=== PATIENT | male | born 1955 | race Caucasian/White ===

== ENCOUNTER 2022-06-17 09:37 | Outpatient (RCR) | payer OTHER ==
[~2022-06-17] VITALS: Ht 185.4 cm; Wt 114.8 kg
[~2022-06-17 09:37] MED LIST: D5W 500 ML IV SOLUTION 500 ML IV SCH; D5W IV SCH; HEParin (CENTRAL IV FLUSH) 500 UNIT/5 ML SYR IV PRN; OXALIPLATIN IV SCH; PALONOSETRON HCL 0.25 MG, dexAMETHasone INJECTION 10 MG in NS (IVPB) 50 ML IV SCH
[2022-06-17 10:03] LABS: BASOPHILS # (AUTO) 0.1 10^3/uL (0.0-0.1); BASOPHILS % (AUTO) 1 % (0-10); EOSINOPHILS # (AUTO) 0.2 10^3/uL (0.0-0.3); EOSINOPHILS % (AUTO) 3 % (0-10); HEMATOCRIT 38 % (40-54); HEMOGLOBIN 11.3 g/dL (13.3-17.7); LYMPHOCYTES # (AUTO) 1.4 10^3/uL (1.0-4.0); LYMPHOCYTES % (AUTO) 19 % (12-44); MEAN CORPUSCULAR HEMOGLOBIN 23 pg (25-34); MEAN CORPUSCULAR HGB CONC 30 g/dL (32-36); MEAN CORPUSCULAR VOLUME 77 fL (80-99); MEAN PLATELET VOLUME 10.2 fL (9.0-12.2); MONOCYTES # (AUTO) 0.7 10^3/uL (0.0-1.0); MONOCYTES % (AUTO) 9 % (0-12); NEUTROPHILS % (AUTO) 68 % (42-75); PLATELET COUNT 286 10^3/uL (130-400); WHITE BLOOD COUNT 7.3 10^3/uL (4.3-11.0)
[2022-06-17 10:24] LABS: BILIRUBIN,TOTAL 0.5 MG/DL (0.1-1.0); CALCIUM 9.3 MG/DL (8.5-10.1); CREATININE SERUM 1.54 MG/DL (0.60-1.30); POTASSIUM 4.2 MMOL/L (3.6-5.0); TOTAL PROTEIN 7.3 GM/DL (6.4-8.2)
== END 2022-06-20 | disposition home or self-care (01) ==
LOC: ONC 09:37
PROVIDERS: ATTEND Internal Medicine Hematology & Oncology
DX: Z51.11 Encounter for antineoplastic chemotherapy (principal); C18.9 Malignant neoplasm of colon, unspecified
CPT/HCPCS: 36591; 80053; 85025; 96375; 96413; 96415; 99204

== ENCOUNTER 2022-07-07 09:36 | Outpatient (RCR) | payer OTHER ==
[2022-07-07 10:32] LABS: BASOPHILS % (AUTO) 0 % (0-10); EOSINOPHILS % (AUTO) 0 % (0-10); HEMATOCRIT 42 % (40-54); HEMOGLOBIN 13.2 g/dL (13.3-17.7); LYMPHOCYTES # (AUTO) 0.7 10^3/uL (1.0-4.0); LYMPHOCYTES % (AUTO) 9 % (12-44); MEAN CORPUSCULAR HEMOGLOBIN 24 pg (25-34); MEAN CORPUSCULAR HGB CONC 32 g/dL (32-36); MEAN CORPUSCULAR VOLUME 76 fL (80-99); MEAN PLATELET VOLUME 9.9 fL (9.0-12.2); MONOCYTES # (AUTO) 0.2 10^3/uL (0.0-1.0); MONOCYTES % (AUTO) 3 % (0-12); NEUTROPHILS # (AUTO) 6.7 10^3/uL (1.8-7.8); NEUTROPHILS % (AUTO) 88 % (42-75); PLATELET COUNT 242 10^3/uL (130-400); WHITE BLOOD COUNT 7.7 10^3/uL (4.3-11.0)
[2022-07-07 10:51] LABS: CREATININE SERUM 1.55 MG/DL (0.60-1.30); POTASSIUM 4.4 MMOL/L (3.6-5.0)
[2022-07-07 10:52] LABS: ALBUMIN 4.3 GM/DL (3.2-4.5); BILIRUBIN,TOTAL 0.4 MG/DL (0.1-1.0); CALCIUM 9.5 MG/DL (8.5-10.1); TOTAL PROTEIN 8.1 GM/DL (6.4-8.2)
== END 2022-07-21 | disposition home or self-care (01) ==
LOC: ONC 09:36
PROVIDERS: ATTEND Internal Medicine Hematology & Oncology
DX: Z51.11 Encounter for antineoplastic chemotherapy (principal); Z45.2 Encounter for adjustment and management of vascular access device; C18.9 Malignant neoplasm of colon, unspecified
CPT/HCPCS: 36591; 80053; 85025; 96375; 96413; 96415

== ENCOUNTER 2022-08-18 09:38 | Outpatient (RCR) | payer OTHER ==
[2022-07-28 11:18] LABS: BASOPHILS % (AUTO) 1 % (0-10); EOSINOPHILS # (AUTO) 0.2 10^3/uL (0.0-0.3); EOSINOPHILS % (AUTO) 3 % (0-10); HEMATOCRIT 40 % (40-54); HEMOGLOBIN 12.9 g/dL (13.3-17.7); LYMPHOCYTES # (AUTO) 1.6 10^3/uL (1.0-4.0); LYMPHOCYTES % (AUTO) 23 % (12-44); MEAN CORPUSCULAR HEMOGLOBIN 26 pg (25-34); MEAN CORPUSCULAR HGB CONC 32 g/dL (32-36); MEAN CORPUSCULAR VOLUME 80 fL (80-99); MEAN PLATELET VOLUME 9.9 fL (9.0-12.2); MONOCYTES % (AUTO) 14 % (0-12); NEUTROPHILS % (AUTO) 59 % (42-75); PLATELET COUNT 160 10^3/uL (130-400); WHITE BLOOD COUNT 6.7 10^3/uL (4.3-11.0)
[2022-07-28 11:47] LABS: ALBUMIN 3.9 GM/DL (3.2-4.5); BILIRUBIN,TOTAL 0.5 MG/DL (0.1-1.0); CALCIUM 9.3 MG/DL (8.5-10.1); CREATININE SERUM 1.31 MG/DL (0.60-1.30); POTASSIUM 4.2 MMOL/L (3.6-5.0); TOTAL PROTEIN 7.6 GM/DL (6.4-8.2)
[~2022-08-18 09:38] MED LIST changes: +ALTEPLASE 2 MG (CATHFLO) IV ONE
[2022-08-18 10:27] LABS: BASOPHILS # (AUTO) 0.1 10^3/uL (0.0-0.1); BASOPHILS % (AUTO) 1 % (0-10); EOSINOPHILS # (AUTO) 0.1 10^3/uL (0.0-0.3); EOSINOPHILS % (AUTO) 2 % (0-10); HEMATOCRIT 38 % (40-54); HEMOGLOBIN 12.5 g/dL (13.3-17.7); LYMPHOCYTES # (AUTO) 1.2 10^3/uL (1.0-4.0); LYMPHOCYTES % (AUTO) 20 % (12-44); MEAN CORPUSCULAR HEMOGLOBIN 27 pg (25-34); MEAN CORPUSCULAR HGB CONC 33 g/dL (32-36); MEAN CORPUSCULAR VOLUME 83 fL (80-99); MEAN PLATELET VOLUME 9.8 fL (9.0-12.2); MONOCYTES # (AUTO) 0.9 10^3/uL (0.0-1.0); MONOCYTES % (AUTO) 15 % (0-12); NEUTROPHILS # (AUTO) 3.8 10^3/uL (1.8-7.8); NEUTROPHILS % (AUTO) 62 % (42-75); PLATELET COUNT 143 10^3/uL (130-400); WHITE BLOOD COUNT 6.2 10^3/uL (4.3-11.0)
[2022-08-18 11:12] LABS: ALBUMIN 3.8 GM/DL (3.2-4.5); BILIRUBIN,TOTAL 0.3 MG/DL (0.1-1.0); CALCIUM 9.1 MG/DL (8.5-10.1); CREATININE SERUM 1.46 MG/DL (0.60-1.30); POTASSIUM 4.1 MMOL/L (3.6-5.0); TOTAL PROTEIN 7.1 GM/DL (6.4-8.2)
== END 2022-08-20 | disposition home or self-care (01) ==
LOC: ONC 09:38
PROVIDERS: ATTEND Internal Medicine Hematology & Oncology
DX: Z51.11 Encounter for antineoplastic chemotherapy (principal); Z45.2 Encounter for adjustment and management of vascular access device; C18.9 Malignant neoplasm of colon, unspecified
CPT/HCPCS: 36591; 36593; 80053; 85025; 96375; 96413; 96415

== ENCOUNTER 2022-09-08 09:40 | Outpatient (RCR) | payer OTHER ==
[~2022-09-08 09:40] MED LIST changes: -ALTEPLASE 2 MG (CATHFLO) IV ONE
[2022-09-08 10:33] LABS: BASOPHILS # (AUTO) 0.1 10^3/uL (0.0-0.1); BASOPHILS % (AUTO) 1 % (0-10); EOSINOPHILS # (AUTO) 0.2 10^3/uL (0.0-0.3); EOSINOPHILS % (AUTO) 3 % (0-10); HEMATOCRIT 42 % (40-54); HEMOGLOBIN 13.9 g/dL (13.3-17.7); LYMPHOCYTES # (AUTO) 1.9 10^3/uL (1.0-4.0); LYMPHOCYTES % (AUTO) 28 % (12-44); MEAN CORPUSCULAR HEMOGLOBIN 28 pg (25-34); MEAN CORPUSCULAR HGB CONC 33 g/dL (32-36); MEAN CORPUSCULAR VOLUME 86 fL (80-99); MONOCYTES # (AUTO) 0.8 10^3/uL (0.0-1.0); MONOCYTES % (AUTO) 12 % (0-12); NEUTROPHILS # (AUTO) 3.7 10^3/uL (1.8-7.8); NEUTROPHILS % (AUTO) 55 % (42-75); PLATELET COUNT 149 10^3/uL (130-400); WHITE BLOOD COUNT 6.7 10^3/uL (4.3-11.0)
[2022-09-08 10:59] LABS: ALBUMIN 3.8 GM/DL (3.2-4.5); BILIRUBIN,TOTAL 0.5 MG/DL (0.1-1.0); CALCIUM 9.5 MG/DL (8.5-10.1); CREATININE SERUM 1.42 MG/DL (0.60-1.30); TOTAL PROTEIN 7.4 GM/DL (6.4-8.2)
== END 2022-09-20 | disposition home or self-care (01) ==
LOC: ONC 09:40
PROVIDERS: ATTEND Internal Medicine Hematology & Oncology
DX: Z51.11 Encounter for antineoplastic chemotherapy (principal); Z45.2 Encounter for adjustment and management of vascular access device; C18.9 Malignant neoplasm of colon, unspecified
CPT/HCPCS: 36591; 80053; 85025; 96375; 96413; 96415

== ENCOUNTER 2022-09-29 09:40 | Outpatient (RCR) | payer OTHER ==
[2022-09-29 10:16] LABS: BASOPHILS # (AUTO) 0.1 10^3/uL (0.0-0.1); BASOPHILS % (AUTO) 1 % (0-10); EOSINOPHILS # (AUTO) 0.2 10^3/uL (0.0-0.3); EOSINOPHILS % (AUTO) 3 % (0-10); HEMATOCRIT 40 % (40-54); HEMOGLOBIN 13.7 g/dL (13.3-17.7); LYMPHOCYTES % (AUTO) 27 % (12-44); MEAN CORPUSCULAR HEMOGLOBIN 30 pg (25-34); MEAN CORPUSCULAR HGB CONC 34 g/dL (32-36); MEAN CORPUSCULAR VOLUME 90 fL (80-99); MEAN PLATELET VOLUME 9.9 fL (9.0-12.2); MONOCYTES # (AUTO) 1.1 10^3/uL (0.0-1.0); MONOCYTES % (AUTO) 15 % (0-12); NEUTROPHILS # (AUTO) 3.9 10^3/uL (1.8-7.8); NEUTROPHILS % (AUTO) 53 % (42-75); WHITE BLOOD COUNT 7.4 10^3/uL (4.3-11.0)
[2022-09-29 10:20] LABS: PLATELET COUNT 116 10^3/uL (130-400)
[2022-09-29 10:55] LABS: ALBUMIN 3.9 GM/DL (3.2-4.5); BILIRUBIN,TOTAL 0.5 MG/DL (0.1-1.0); CALCIUM 9.4 MG/DL (8.5-10.1); CREATININE SERUM 1.48 MG/DL (0.60-1.30); POTASSIUM 4.2 MMOL/L (3.6-5.0); TOTAL PROTEIN 7.4 GM/DL (6.4-8.2)
== END 2022-10-20 | disposition home or self-care (01) ==
LOC: ONC 09:40
PROVIDERS: ATTEND Internal Medicine Hematology & Oncology
DX: Z51.11 Encounter for antineoplastic chemotherapy (principal); Z45.2 Encounter for adjustment and management of vascular access device; C18.9 Malignant neoplasm of colon, unspecified
CPT/HCPCS: 36591; 80053; 85025; 96375; 96413; 96415

== ENCOUNTER 2022-10-27 09:43 | Outpatient (RCR) | payer OTHER ==
[2022-10-21 10:30] LABS: BASOPHILS % (AUTO) 1 % (0-10); EOSINOPHILS # (AUTO) 0.2 10^3/uL (0.0-0.3); EOSINOPHILS % (AUTO) 3 % (0-10); HEMOGLOBIN 13.4 g/dL (13.3-17.7)
[2022-10-21 10:32] LABS: HEMATOCRIT 39 % (40-54); LYMPHOCYTES # (AUTO) 1.4 10^3/uL (1.0-4.0); LYMPHOCYTES % (AUTO) 25 % (12-44); MEAN CORPUSCULAR HEMOGLOBIN 32 pg (25-34); MEAN CORPUSCULAR HGB CONC 34 g/dL (32-36); MEAN CORPUSCULAR VOLUME 94 fL (80-99); MEAN PLATELET VOLUME 10.1 fL (9.0-12.2); MONOCYTES # (AUTO) 0.9 10^3/uL (0.0-1.0); MONOCYTES % (AUTO) 15 % (0-12); NEUTROPHILS # (AUTO) 3.1 10^3/uL (1.8-7.8); NEUTROPHILS % (AUTO) 55 % (42-75); PLATELET COUNT 106 10^3/uL (130-400); WHITE BLOOD COUNT 5.7 10^3/uL (4.3-11.0)
[2022-10-21 10:49] LABS: ALBUMIN 3.6 GM/DL (3.2-4.5); BILIRUBIN,TOTAL 0.6 MG/DL (0.1-1.0); CALCIUM 9.1 MG/DL (8.5-10.1); CREATININE SERUM 1.28 MG/DL (0.60-1.30); TOTAL PROTEIN 7.2 GM/DL (6.4-8.2)
[2022-10-27 10:14] LABS: LYMPHOCYTES % (AUTO) 25 % (12-44)
[2022-10-27 10:16] LABS: BASOPHILS % (AUTO) 1 % (0-10); EOSINOPHILS # (AUTO) 0.2 10^3/uL (0.0-0.3); EOSINOPHILS % (AUTO) 3 % (0-10); HEMATOCRIT 44 % (40-54); HEMOGLOBIN 15.1 g/dL (13.3-17.7); MEAN CORPUSCULAR HEMOGLOBIN 33 pg (25-34); MEAN CORPUSCULAR HGB CONC 34 g/dL (32-36); MEAN CORPUSCULAR VOLUME 96 fL (80-99); MEAN PLATELET VOLUME 11.1 fL (9.0-12.2); MONOCYTES # (AUTO) 1.1 10^3/uL (0.0-1.0); MONOCYTES % (AUTO) 14 % (0-12); NEUTROPHILS # (AUTO) 4.6 10^3/uL (1.8-7.8); NEUTROPHILS % (AUTO) 58 % (42-75); PLATELET COUNT 126 10^3/uL (130-400)
== END 2022-11-20 | disposition home or self-care (01) ==
LOC: ONC 09:43
PROVIDERS: ATTEND Internal Medicine Hematology & Oncology
DX: Z51.11 Encounter for antineoplastic chemotherapy (principal); C18.9 Malignant neoplasm of colon, unspecified
CPT/HCPCS: 36591; 80053; 85025; 96375; 96413; 96415; 99213

== ENCOUNTER → 2022-11-29 | Outpatient (CLI) | payer OTHER ==
[~2022-11-29] MED LIST changes: -D5W 500 ML IV SOLUTION 500 ML IV SCH; -D5W IV SCH; -HEParin (CENTRAL IV FLUSH) 500 UNIT/5 ML SYR IV PRN; +HOLD METFORMIN - RECEIVED CONTRAST 20 ML VIAL IV SCH; +IOHEXOL 350 MG/ML 100 ML (OMNIPAQUE 350) VIAL IV ONE; +NS 100 ML (IVPB) BAG IV ONE; -OXALIPLATIN IV SCH; -PALONOSETRON HCL 0.25 MG, dexAMETHasone INJECTION 10 MG in NS (IVPB) 50 ML IV SCH
--- NOTE | 2022-11-29 10:05 | Diagnostic Imaging Report ---
PROCEDURE: CT chest, abdomen, and pelvis with contrast. TECHNIQUE: Multiple contiguous axial images were obtained through the chest, abdomen, and pelvis after the administration of intravenous contrast. Auto Exposure Controls were utilized during the CT exam to meet ALARA standards for radiation dose reduction. INDICATION: Colon carcinoma and lung cancer CT CHEST: There is right anterior chest wall Port-A-Cath without evidence of complication. Note is made of an approximately 0.8 cm isodense nodule along the inferior pole the left lobe of the thyroid gland. Otherwise, there is centrilobular emphysema involving primarily the upper lobes and more pronounced on the right. There is linear scarring in the subpleural aspect of the lateral left lower lobe. Otherwise, no focal mass or infiltrate is identified. There are coronary artery calcifications. Occasional mildly prominent paratracheal lymph nodes are noted without pathologic adenopathy detected. There is no significant pleural or pericardial fluid. IMPRESSION: Subpleural scarring in the left lower lobe may be related to previous therapy. Otherwise, there is background centrilobular emphysema most pronounced in right upper lobe with an approximately 0.8 cm solid nodule in the inferior pole of the left lobe of thyroid gland. Followup ultrasonography may be useful to document ongoing stability. CT ABDOMEN AND PELVIS: There is mild low-density in the liver indicating steatosis without evidence of focal hepatic abnormality. No gallbladder, pancreatic or adrenal gland abnormality is identified. There are calcified granulomas in the spleen. Kidneys are unremarkable in appearance. There is no hydronephrosis or hydroureter. There is mild aortic atherosclerotic disease. Right colon has been surgically removed. There is fatty distortion within the omentum and mesentery in the right abdomen with possible developing fat necrosis however no discrete mass or pathologic adenopathy is identified. Unopacified bladder is unremarkable. Degenerative findings are present in the right hip joint with subchondral sclerosis possibly related to developing avascular necrosis. There is mild lumbar spondylosis. IMPRESSION: Right hemicolectomy with distortion of fatty tissues. No definite mass, pathologic adenopathy or acute abnormality is seen. Degenerative findings are seen in the right hip and lumbar spine most pronounced at the L5-S1 level. Dictated by: Dictated on workstation # [id number]
== END ==
LOC: RAD 10:15
PROVIDERS: ATTEND Internal Medicine Hematology & Oncology
DX: C18.9 Malignant neoplasm of colon, unspecified (principal); M16.11 Unilateral primary osteoarthritis, right hip; M51.37 Other intervertebral disc degeneration, lumbosacral region; Z90.49 Acquired absence of other specified parts of digestive tract
CPT/HCPCS: 71260; 74177

== ENCOUNTER 2022-11-30 08:20 | Outpatient (RCR) | payer OTHER ==
[2022-11-30 08:41] LABS: BASOPHILS # (AUTO) 0.1 10^3/uL (0.0-0.1); BASOPHILS % (AUTO) 1 % (0-10); EOSINOPHILS # (AUTO) 0.2 10^3/uL (0.0-0.3); EOSINOPHILS % (AUTO) 2 % (0-10); HEMATOCRIT 43 % (40-54); HEMOGLOBIN 14.3 g/dL (13.3-17.7); LYMPHOCYTES # (AUTO) 1.6 10^3/uL (1.0-4.0); LYMPHOCYTES % (AUTO) 23 % (12-44); MEAN CORPUSCULAR HEMOGLOBIN 32 pg (25-34); MEAN CORPUSCULAR HGB CONC 34 g/dL (32-36); MEAN CORPUSCULAR VOLUME 96 fL (80-99); MONOCYTES # (AUTO) 0.9 10^3/uL (0.0-1.0); MONOCYTES % (AUTO) 14 % (0-12); NEUTROPHILS % (AUTO) 60 % (42-75); PLATELET COUNT 147 10^3/uL (130-400); WHITE BLOOD COUNT 6.8 10^3/uL (4.3-11.0)
[2022-11-30 09:02] LABS: ALBUMIN 4.1 GM/DL (3.2-4.5); BILIRUBIN,TOTAL 0.4 MG/DL (0.1-1.0); CALCIUM 9.9 MG/DL (8.5-10.1); CREATININE SERUM 1.5 MG/DL (0.60-1.30); POTASSIUM 4.1 MMOL/L (3.6-5.0); TOTAL PROTEIN 8.3 GM/DL (6.4-8.2)
== END 2022-12-21 | disposition home or self-care (01) ==
LOC: ONC 08:20
PROVIDERS: ATTEND Internal Medicine Hematology & Oncology
DX: C18.9 Malignant neoplasm of colon, unspecified (principal)
CPT/HCPCS: 36415; 80053; 85025; 99213

== ENCOUNTER 2023-03-16 13:29 | Outpatient (RCR) | payer OTHER ==
[2023-03-16 14:09] LABS: BASOPHILS # (AUTO) 0.1 10^3/uL (0.0-0.1); BASOPHILS % (AUTO) 1 % (0-10); MEAN CORPUSCULAR VOLUME 84 fL (80-99)
[2023-03-16 14:10] LABS: EOSINOPHILS # (AUTO) 0.2 10^3/uL (0.0-0.3); EOSINOPHILS % (AUTO) 2 % (0-10); HEMATOCRIT 45 % (40-54); HEMOGLOBIN 14.8 g/dL (13.3-17.7); LYMPHOCYTES # (AUTO) 1.9 10^3/uL (1.0-4.0); LYMPHOCYTES % (AUTO) 24 % (12-44); MEAN CORPUSCULAR HEMOGLOBIN 28 pg (25-34); MEAN CORPUSCULAR HGB CONC 33 g/dL (32-36); MEAN PLATELET VOLUME 11.6 fL (9.0-12.2); MONOCYTES # (AUTO) 0.6 10^3/uL (0.0-1.0); MONOCYTES % (AUTO) 8 % (0-12); NEUTROPHILS % (AUTO) 65 % (42-75); PLATELET COUNT 146 10^3/uL (130-400); WHITE BLOOD COUNT 7.8 10^3/uL (4.3-11.0)
[2023-03-16 14:28] LABS: ALBUMIN 4.1 GM/DL (3.2-4.5); BILIRUBIN,TOTAL 0.3 MG/DL (0.1-1.0); CALCIUM 9.1 MG/DL (8.5-10.1); CREATININE SERUM 1.54 MG/DL (0.60-1.30); POTASSIUM 3.9 MMOL/L (3.6-5.0); TOTAL PROTEIN 7.9 GM/DL (6.4-8.2)
== END 2023-03-20 | disposition home or self-care (01) ==
LOC: ONC 13:29
PROVIDERS: ATTEND Internal Medicine Hematology & Oncology
DX: Z45.2 Encounter for adjustment and management of vascular access device (principal); C18.9 Malignant neoplasm of colon, unspecified
CPT/HCPCS: 36415; 36591; 80053; 83036; 85025